=== PATIENT | female | born 1960 | race Caucasian/White ===

== ENCOUNTER 2023-09-14 15:12 | Day surgery (SDC) | payer MEDICARE ==
[2023-09-14] MEDS ORDERED: Depo-Medrol 40 MG/ML IM ONE (15:13)
[2023-09-14] MEDS ORDERED: BUPIVACAINE 0.5% VIAL IJ ONE ×2 (15:13)
[2023-09-14] MEDS ORDERED: LIDOCAINE HCL 1% 50 MG/5 ML VL PF IJ ONE (15:13)
[2023-09-14] MEDS ORDERED: Lactated Ringers 1,000 ML IV ONE (17:58)
--- NOTE | 2023-09-14 20:45 | XRAY ---
Indication: Right L3-S1 RFA. Intraoperative fluoroscopy provided for 34 seconds. 6 digital spot image submitted for interpretation demonstrates posterior needle tips projecting over the expected right L3-S1 nerve roots. Correlate with intraoperative findings/report. Incidental partially visualized epidural leads.
--- NOTE | 2023-09-15 08:45 | XRAY ---
34 seconds of fluoroscopy was used in surgery for a right L3-S1 RFA.
== END 2023-09-14 18:05 | disposition home or self-care (01) ==
LOC: SDC-PAIN 15:12
PROVIDERS: ATTEND Psychiatry & Neurology Pain Medicine
DX: M47.816 Spondylosis without myelopathy or radiculopathy, lumbar region (principal); E11.9 Type 2 diabetes mellitus without complications; Z79.899 Other long term (current) drug therapy
CPT/HCPCS: 64635; 64636; 72100; 77002; 82947; J1030; J2001

== ENCOUNTER 2023-09-21 15:13 | Day surgery (SDC) | payer MEDICARE ==
[2023-09-21] MEDS ORDERED: Depo-Medrol 40 MG/ML IM ONE (15:14)
[2023-09-21] MEDS ORDERED: BUPIVACAINE 0.5% VIAL IJ ONE (15:14)
[2023-09-21] MEDS ORDERED: LIDOCAINE HCL 1% 50 MG/5 ML VL PF IJ ONE (15:14)
[2023-09-21] MEDS ORDERED: Lactated Ringers 1,000 ML IV ONE (18:09)
--- NOTE | 2023-09-22 08:40 | XRAY ---
Indication: Left L3-S1 RFA. Intraoperative fluoroscopy provided for 45 seconds. 3 digital spot image submitted for interpretation demonstrates posterior needle tips projecting over the expected the left L3-S1 nerve roots. Correlate with intraoperative findings/report. Incidental incompletely visualized epidural leads.
--- NOTE | 2023-09-22 12:39 | XRAY ---
45 seconds of fluoroscopy was used in surgery for a left L3-S1 RFA.
== END 2023-09-21 18:12 | disposition home or self-care (01) ==
LOC: SDC-PAIN 15:13
PROVIDERS: ATTEND Psychiatry & Neurology Pain Medicine
DX: M47.816 Spondylosis without myelopathy or radiculopathy, lumbar region (principal); E11.9 Type 2 diabetes mellitus without complications
CPT/HCPCS: 64635; 64636; 72100; 77002; 82947; J1030; J2001

== ENCOUNTER 2023-12-24 11:27 | Emergency (ER) | payer MEDICARE ==
[2023-12-24 11:43] VITALS: RESP 18; TEMP 97.5
[2023-12-24] MEDS ORDERED: Sodium Chloride 0.9% 1000 ML 1,000 ML IV STA (11:56)
--- NOTE | 2023-12-24 12:01 | ERPHSYRPT ---
- History of Present Illness Time Seen by Provider: 12/24/23 11:58 Historian: patient Exam Limitations: no limitations Patient Subjective Stated Complaint: Pt states "I went to [facility] and they sent me down here.". Jacqueline from [facility] stated "She has chronic back pain and she has a stimulator in and she says that she has pain in her right back that is going into her groin and it hurts when she sits so I just thought she needed to be down there." Triage Nursing Assessment: Pt presented alert oriented X 3, skin pwd. Pt holding her right side. PT stated her topomax was increased and when she started to read the side effects it said side and back pain so she stopped taking it yesterday. Physician History: Pt states "I went to [facility] and they sent me down here." Jacqueline from [facility] stated "She has chronic back pain and she has a stimulator in and she says that she has pain in her right back that is going into her groin and it hurts when she sits so I just thought she needed to be down there." . Patient is 63-year-old female with significant past medical history of chronic back pain with stimulator placement started having some right-sided flank pain radiating to the right groin. She was seen by nurse practitioner 2 days ago and her urine was checked which was unremarkable. She continues to have a pain in the right flank radiated to the front so she went to [facility] today and she was advised to come to the emergency room. In the emergency room she was mainly complaining of right flank pain radiating to the right groin she was denying any nausea vomiting or diarrhea or any blood in her stool or urine Timing/Duration: day(s) (2-3 days) Abdominal Pain Onset Location: flank (right) Pain Radiation: groin (right groin) Severity of Pain-Max: moderate Severity of Pain-Current: moderate Associated Symptoms: denies symptoms Allergies/Adverse Reactions: NSAIDS (Non-Steroidal Anti-Inflamma Adverse Reaction (Mild, Verified 12/24/23 11:44) renal function not good Home Medications: Duloxetine HCl [Cymbalta] 60 mg PO DAILY 12/24/23 [History] Oxycodone HCl/Acetaminophen [Oxycodone-Acetaminophen 5-325] 1 each PO DAILY 12/24/23 [History] Potassium Chloride [Klor-Con] 20 meq PO DAILY 12/24/23 [History] Topiramate 50 mg PO BID 12/24/23 [History] Hx Tetanus, Diphtheria Vaccination/Date Given: Yes Hx Influenza Vaccination/Date Given: Yes Hx Pneumococcal Vaccination/Date Given: Yes Immunizations Up to Date: Yes Travel Risk - International Travel Have you traveled outside of the country in past 3 weeks: No - Coronavirus Screening Are you exhibiting any of the following symptoms?: No Close contact with a COVID-19 positive Pt in past 14-21 Days: No - Vaccine Status Have you recieved a Covid-19 vaccination: Yes Wholesale Account Executive: Unknown - Vaccination Dates Dates if Unknown: ? - Review of Systems Constitutional: No Fever, No Chills Eyes: No Symptoms Ears, Nose, & Throat: No Symptoms Respiratory: No Cough, No Dyspnea Cardiac: No Chest Pain, No Edema, No Syncope Abdominal/Gastrointestinal: No Abdominal Pain, No Nausea, No Vomiting, No Diarrhea Genitourinary Symptoms: Flank Pain (right side), No Dysuria Musculoskeletal: No Back Pain, No Neck Pain Skin: No Rash Neurological: No Dizziness, No Focal Weakness, No Sensory Changes Psychological: No Symptoms Endocrine: No Symptoms All Other Systems: Reviewed and Negative - Past Medical History Pertinent Past Medical History: Yes Neurological History: No Pertinent History Cardiac History: High Cholesterol Respiratory History: Pneumonia Endocrine Medical History: Diabetes Type II Musculoskeletal History: Arthritis Other Medical History: Mitral valve prolapse. chronic back pain - Past Surgical History Past Surgical History: Yes Other Surgical History: right knee replacement. spinal stimulator. left foot X 4. right foot x 1. left wrist X 1 - Social History Smoking Status: Current every day smoker How long have you smoked: years Exposure to second hand smoke: Yes Drug Use: none Patient Lives Alone: Yes - Nursing Vital Signs Nursing Vital Signs: Initial Vital Signs Temperature 97.5 F 12/24/23 11:36 Pulse Rate 61 12/24/23 11:36 Respiratory Rate 18 12/24/23 11:36 Blood Pressure 132/87 12/24/23 11:36 O2 Sat by Pulse Oximetry 93 L 12/24/23 11:36 Pain Scale Pain Intensity 5 - Physical Exam General Appearance: no apparent distress, alert Eye Exam: PERRL/EOMI, eyes nml inspection Ears, Nose, Throat Exam: normal ENT inspection, pharynx normal, moist mucous membranes Neck Exam: normal inspection, non-tender, supple, full range of motion Respiratory Exam: normal breath sounds, lungs clear, No respiratory distress Cardiovascular Exam: regular rate/rhythm, normal heart sounds Gastrointestinal/Abdomen Exam: soft, tenderness (right flank), No mass Back Exam: normal inspection, normal range of motion, No CVA tenderness, No vertebral tenderness Extremity Exam: normal inspection, normal range of motion, pelvis stable Neurologic Exam: alert, oriented x 3, cooperative, normal mood/affect, nml cerebellar function, sensation nml, No motor deficits Skin Exam: normal color, warm, dry SpO2: 93 - Course Nursing assessment & vital signs reviewed: Yes - CT Exams Abdomen/Pelvis CT Interpretation: Tele-radiologist Report Ordered Tests: Active Orders 24 hr Category Date Time Status IV Insertion STAT Care 12/24/23 13:26 Active ABDOMEN AND PELVIS W/0 CONTRAS [CT] Stat Exams 12/24/23 11:57 Completed AMYLASE Stat Lab 12/24/23 12:20 Completed CBC W DIFF Stat Lab 12/24/23 12:20 Completed CMP Stat Lab 12/24/23 12:20 Completed CULTURE,URINE Stat Lab 12/24/23 12:10 Received UA W/RFX UR CULTURE Stat Lab 12/24/23 12:10 Completed Medication Summary Discontinued Medications Generic Name Dose Route Start Last Admin Trade Name Freq PRN Reason Stop Dose Admin Sodium Chloride 1,000 mls @ 999 mls/hr 12/24/23 11:56 12/24/23 12:45 Sodium Chloride 0.9% 1000 Ml IV 12/24/23 12:56 999 mls/hr .Q1H1M STA Administration Sodium Chloride Confirm 12/24/23 12:44 Sodium Chloride 0.9% 1000 Ml Administered 12/24/23 12:45 Dose 1,000 mls @ ud .ROUTE .STK-MED ONE Ceftriaxone Sodium 1 gm in 100 mls @ 200 mls/hr 12/24/23 13:09 12/24/23 13:24 Rocephin 1 Gm / 100 Ml Nacl IV 12/24/23 13:38 200 ml/hr STAT ONE 200 mls/hr Administration Ceftriaxone Sodium Confirm 12/24/23 13:16 Rocephin 1 Gm / 100 Ml Nacl Administered 12/24/23 13:17 Dose 1 gm in 100 mls @ ud IV .STK-MED ONE Orphenadrine Citrate 60 mg 12/24/23 13:28 12/24/23 13:32 Orphenadrine Citrate 60 Mg/2 Ml Vial IM 12/24/23 13:29 60 mg STAT ONE Administration Orphenadrine Citrate Confirm 12/24/23 13:31 Orphenadrine Citrate 60 Mg/2 Ml Vial Administered 12/24/23 13:32 Dose 60 mg .ROUTE .K-MED ONE Lab/Rad Data: Laboratory Result Diagrams 12/24/23 12:20 12/24/23 12:20 Laboratory Results 12/24/23 12/24/23 12/24/23 Range/Units 12:20 12:20 12:10 WBC 8.5 (4.0-10.5) x10^3/uL RBC 5.02 (4.1-5.4) x10^6/uL Hgb 14.9 (12.0-16.0) g/dL Hct 46.9 (35-47) % MCV 93.4 (78-100) fL MCH 29.7 (26-32) pg MCHC 31.8 L (32-36) g/dL RDW 14.1 H (11.5-14.0) % Plt Count 292 (150-450) x10^3/uL MPV 10.4 (7.5-11.0) fL Gran % 82.0 H (36.0-66.0) % Immature Gran % (Auto) 0.4 (0.00-0.4) % Nucleat RBC Rel Count 0.0 (0.00-0.1) % Eos # (Auto) 0.01 (0-0.5) x10^3/uL Immature Gran # (Auto) 0.03 (0.00-0.03) x10^3u/L Absolute Lymphs (auto) 1.07 (1.0-4.6) x10^3/uL Absolute Monos (auto) 0.37 (0.0-1.3) x10^3/uL Absolute Nucleated RBC 0.00 (0.00-0.01) x10^3u/L Lymphocytes % 12.6 L (24.0-44.0) % Monocytes % 4.4 (0.0-12.0) % Eosinophils % 0.1 (0.00-5.0) % Basophils % 0.5 (0.0-0.4) % Absolute Granulocytes 6.98 H (1.4-6.9) x10^3/uL Basophils # 0.04 (0-0.4) x10^3/uL Sodium 142 (137-145) mmol/L Potassium 3.7 (3.5-5.1) mmol/L Chloride 108 H (98-107) mmol/L Carbon Dioxide 23 (22-30) mmol/L Anion Gap 14.2 (5-15) MEQ/L BUN 13 (7-17) mg/dL Creatinine 0.96 (0.52-1.04) mg/dL Estimated GFR 67.3 ML/MIN Glucose 105 (74-106) mg/dL Calcium 10.1 (8.4-10.2) mg/dL Total Bilirubin 0.60 (0.2-1.3) mg/dL AST 24 (14-36) U/L ALT 12 (0-35) U/L Alkaline Phosphatase 96 (38-126) U/L Serum Total Protein 8.4 H (6.3-8.2) g/dL Albumin 5.1 H (3.5-5.0) g/dL Amylase 63 (30-110) U/L Urine Color Yellow (Yellow) Urine Appearance Clear (Clear) Urine pH 6.5 (4.6-8.0) Ur Specific [place] 1.025 (1.005-1.030) Urine Protein Trace A (Negative) Urine Glucose (UA) Negative (Negative) mg/dL Urine Ketones Negative (Negative) Urine Blood Small A (Negative) Urine Nitrite Negative (Negative) Urine Bilirubin Negative (Negative) Urine Urobilinogen 1.0 A (0.2) mg/dL Ur Leukocyte Esterase Small A (Negative) U Hyaline Cast (Auto) NONE SEEN (0-2) /LPF Urine Microscopic RBC 11-20 A (0-5) /HPF Urine Microscopic WBC 6-10 A (0-5) /HPF Ur Epithelial Cells Rare (None Seen) /HPF Urine Bacteria Rare A (None Seen) /HPF Urine Culture Reflexed YES (NO) 0004 CT/ABDOMEN AND PELVIS W/0 CONTRAS CLINICAL HISTORY: right flank pain TECHNIQUE: An axial CT scan of the abdomen and pelvis was performed without IV contrast. Coronal and sagittal reconstructive images were also obtained. Images were sent to PACs for interpretation. COMPARISON: None. FINDINGS: Both kidneys are normal in size and shape. No calculi or hydronephrosis. A small subtle hypodense cyst is seen at the lower pole of the right kidney measuring 1.2 x 1.3cm. The liver is mildly enlarged in size. No focal or diffuse parenchymal abnormality. The portal vein, intrahepatic biliary radicals and the bile ducts are normal. The gallbladder is normal. No pericholecystic collection or radio dense calculi in the gall bladder. The pancreas and right adrenal gland are unremarkable. The left adrenal gland appears bulky with a small hypodense nodule in the body with a density of 0 HU, likely a small adenoma. Multiple diffusely calcified granulomas were seen in the spleen. The appendix appears normal. No evidence of any inflammatory fat stranding in right iliac fossa. Noncomplicated colonic diverticulosis seen. There is no evidence of significant enlargement of the mesenteric or retroperitoneal lymph nodes. The urinary bladder is unremarkable. The rectosigmoid colon is unremarkable. The pelvic vasculature is unremarkable. No evidence of pelvic lymphadenopathy. Mild scoliosis of the lumbar spine seen. Degenerative changes seen with reduced intervertebral disc spaces and end plate sclerosis. Sclerotic focus seen in L1 vertebra and right sacrum Pain stimulator seen. Thick atelectatic bands seen in right lower lobe. IMPRESSION: 1. A small 1.2 x 1.3cm hypodense cyst at the lower pole of the right kidney, for US correlation. 2. Mild hepatomegaly. 3. Noncomplicated colonic diverticulosis 4. The left adrenal gland appears bulky with a small hypodense nodule in the body, likely a possibility of a small adenoma. - Progress Progress: improved, pain not gone completely Counseled pt/family regarding: lab results, diagnosis, need for follow-up, rad results Medical Desision Making - Diagnostic Testing Diagnostic test were ordered, analyzed, and reviewed by me: Yes Radiological Interpretation: Teleradiologist Report - Risk of complications Low Risk: Low risk of morbidity from additional dx testing or treatment - Departure Departure Disposition: Home Clinical Impression: Right flank pain, Right groin pain, Renal cyst, congenital Urinary tract infection Qualifiers: Urinary tract infection type: site unspecified Hematuria presence: without hematuria Qualified Code(s): N39.0 - Urinary tract infection, site not specified Adrenal adenoma Qualifiers: Laterality: left Qualified Code(s): D35.02 - Benign neoplasm of left adrenal gland Condition: Stable Critical Care Time: No Referrals: TARA NINO, [employer] [Primary Care Provider] - Follow up/PCP as directed Instructions: Flank Pain Additional Instructions: Discharge/Care Plan LATHA HALL was seen on 12/24/23 in the Emergency Room. The patient was counseled regarding Diagnosis,Lab results, Imaging studies, need for follow up and when to return to the Emergency Room. Prescriptions given: Discharge Note I have spoken with the patient and/or caregivers. I have explained the patient's condition, diagnosis and treatment plan based on the information available to me at this time. I have answered the patient's and/or caregiver's questions and addressed any concerns. The patient and/or caregivers have as good understanding of the patient's diagnosis, condition and treatment plan as can be expected at this point. The vital signs have been stable. The patient's condition is stable and appropriate for discharge from the emergency department. The patient will pursue further outpatient evaluation with the primary care physician or other designated or consulting physician as outlined in the discharge instructions. The patient and/or caregivers are agreeable to this plan of care and follow-up instructions have been explained in detail. The patient an d/or caregivers have received these instruction. The patient/and or caregivers are aware that any significant change in condition or worsening of symptoms should prompt an immediate return to this or the closest emergency department or call 911. LATHA HALL was seen on 12/24/23 n the Emergency Room. At that time you were treated for an emergent condition, during your visit Laboratory, Radiology and/or other procedures may have been ordered. It is very important that you follow-up with your Primary Care Physician TARA NINO within the next 24-48 hours to review your Emergency Room visit and the final results of testing that was ordered. Some test results such as Urine Cultures, Blood Cultures, and other cultures if ordered will not be finalized for 24-48 hours. If you do not have a Primary Care Provider please call the medical records department at [phone] ext [phone] to obtain a copy of your results or you may sign into our patient portal to obtain these results by visiting us @ [email or web address] and completing the following steps: 1. Click on the Patient Portal link 2. Click the Patient Self Enrollment Link to complete the enrollment form and entering your 3. Once the enrollment form is completed you will receive an email with a temporary ID and password at the email address you provided. 4. Next choose a user name and password. Your user name must be at least 4 characters long and your password must be at least 4 characters long. 5. Choose a security question from the list and provide your answer to the question. If you already have signed into the Health Portal you may access your Health Care Information 20/06 by the following steps: 1. Login to our website @ [email or web address] 2. Enter your original user name and password. FAQS The [facility] Health Portal is an online tool that contains your Lab Results, Radiology Reports, Visit History, Discharge Instructions and Health Summary Lab and Radiology Results will not be available for 72 hours on the portal. The Portal is a secure site, passwords are encryted and URLs are re-written so they cannot be copied and pasted. You and authorized family members are the only ones who can access your Portal. Also there is a timeout feature that protects your information if you leave the Portal page open. If you have technical difficulty please use the Contact Us link on the page this will allow you to submit any questions you have regarding the Portal or you may contact the Medical Record Department at [phone] ext [phone]. Prescriptions: Smz/Tmp Ds Tablet [Bactrim Ds Tablet] 1 udtab PO BID #20 tablet
[2023-12-24 12:16] LABS: Appearance Clear (Clear); Bacteria Rare /HPF (None Seen); Bilirubin Negative (Negative); Blood Small (Negative); Epithelial Cells Rare /HPF (None Seen); Glucose, Urine Negative (Negative); Hyaline Casts NONE SEEN /LPF (0-2); Ketones Negative (Negative); Leukocyte Esterase Small (Negative); Nitrite Negative (Negative); Ph 6.5 (4.6-8.0); Protein,Urine Dip Trace (Negative); Specific Gravity 1.025 (1.005-1.030)
[2023-12-24 12:19] LABS: ADD URINE CULTURE? YES (NO)
[2023-12-24 12:24] LABS: Absolute Neutrophil Ct (ANC) 6.98 x10^3/uL (1.4-6.9); BASOPHIL % 0.5 % (0.0-0.4); Basophil (Absolute #) 0.04 x10^3/uL (0-0.4); Eosinophil % 0.1 % (0.00-5.0); Eosinophil (Absolute #) 0.01 x10^3/uL (0-0.5); Hematocrit 46.9 % (35-47); Hemoglobin 14.9 g/dL (12.0-16.0); IMMATURE GRAN # 0.03 x10^3u/L (0.00-0.03); IMMATURE GRAN % 0.4 % (0.00-0.4); Lymphocyte (Absolute #) 1.07 x10^3/uL (1.0-4.6); Lymphocytes % 12.6 % (24.0-44.0); Mean Cell Volume 93.4 fL (78-100); Mean Corpuscular Hemoglobin 29.7 pg (26-32); Mean Corpuscular Hgb Concent. 31.8 g/dL (32-36); Mean Platelet Volume 10.4 fL (7.5-11.0); Monocyte (Absolute #) 0.37 x10^3/uL (0.0-1.3); Monocytes % 4.4 % (0.0-12.0); Platelet Count 292 x10^3/uL (150-450); Red Blood Count 5.02 x10^6/uL (4.1-5.4); Red Cell Distribution Width 14.1 % (11.5-14.0); White Blood Count 8.5 x10^3/uL (4.0-10.5)
[2023-12-24 12:43] LABS: ALBUMIN 5.1 g/dL (3.5-5.0); ANION GAP 14.2 MEQ/L (5-15); BILIRUBIN,TOTAL 0.6 mg/dL (0.2-1.3); Calcium 10.1 mg/dL (8.4-10.2); Creatinine 1 0.96 mg/dL (0.52-1.04); EST GLOMERULAR FILTRATION RATE 67.3 ML/MIN; Potassium 3.7 mmol/L (3.5-5.1); Total Protein 8.4 g/dL (6.3-8.2)
[2023-12-24] MEDS ORDERED: Sodium Chloride 0.9% 1000 ML 1,000 ML ONE (12:44)
[2023-12-24] MEDS ORDERED: ROCEPHIN 1 GM / 100 ML NaCl 1 GM/100 ML IVPB IV ONE ×2 (13:09→13:16)
[2023-12-24] MEDS ORDERED: Norflex 60 MG/2 ML IM ONE (13:28)
[2023-12-24] MEDS ORDERED: Norflex 60 MG/2 ML ONE (13:31)
--- NOTE | 2023-12-24 13:38 | XRAY ---
CLINICAL HISTORY: right flank pain TECHNIQUE: An axial CT scan of the abdomen and pelvis was performed without IV contrast. Coronal and sagittal reconstructive images were also obtained. Images were sent to PACs for interpretation. COMPARISON: None. FINDINGS: Both kidneys are normal in size and shape. No calculi or hydronephrosis. A small subtle hypodense cyst is seen at the lower pole of the right kidney measuring 1.2 x 1.3cm. The liver is mildly enlarged in size. No focal or diffuse parenchymal abnormality. The portal vein, intrahepatic biliary radicals and the bile ducts are normal. The gallbladder is normal. No pericholecystic collection or radio dense calculi in the gall bladder. The pancreas and right adrenal gland are unremarkable. The left adrenal gland appears bulky with a small hypodense nodule in the body with a density of 0 HU, likely a small adenoma. Multiple diffusely calcified granulomas were seen in the spleen. The appendix appears normal. No evidence of any inflammatory fat stranding in right iliac fossa. Noncomplicated colonic diverticulosis seen. There is no evidence of significant enlargement of the mesenteric or retroperitoneal lymph nodes. The urinary bladder is unremarkable. The rectosigmoid colon is unremarkable. The pelvic vasculature is unremarkable. No evidence of pelvic lymphadenopathy. Mild scoliosis of the lumbar spine seen. Degenerative changes seen with reduced intervertebral disc spaces and end plate sclerosis. Sclerotic focus seen in L1 vertebra and right sacrum Pain stimulator seen. Thick atelectatic bands seen in right lower lobe. IMPRESSION: 1. A small 1.2 x 1.3cm hypodense cyst at the lower pole of the right kidney, for US correlation. 2. Mild hepatomegaly. 3. Noncomplicated colonic diverticulosis 4. The left adrenal gland appears bulky with a small hypodense nodule in the body, likely a possibility of a small adenoma. Electronically Signed by: Chantelle Tanner MD. (12/24/2023 13:33:55 EST)
[2023-12-24 14:15] VITALS: BP 146/75; PULSE 63; O2SAT 90
== END 2023-12-24 14:31 | disposition home or self-care (01) ==
LOC: ED 11:27
DX: R10.9 Unspecified abdominal pain (principal); R10.2 Pelvic and perineal pain; Q61.00 Congenital renal cyst, unspecified; N39.0 Urinary tract infection, site not specified; D35.02 Benign neoplasm of left adrenal gland; E78.5 Hyperlipidemia, unspecified; E11.9 Type 2 diabetes mellitus without complications; Z79.891 Long term (current) use of opiate analgesic; Z79.899 Other long term (current) drug therapy; Z72.0 Tobacco use
CPT/HCPCS: 36000; 36415; 74176; 80053; 81001; 82150; 85025; 87086; 96372; 99284; J0696; J2360